=== PATIENT | male | born 1950 | race Caucasian/White ===

== ENCOUNTER 2019-04-02 00:30 | Emergency (ER) | payer BC ==
[2019-04-02 00:35] VITALS: BP 171/96
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
[2019-04-02 02:14] LABS: PLATELET COUNT, AUTOMATED 183 K/uL (150-450)
== END 2019-04-02 03:04 | disposition home or self-care (01) ==
LOC: ER 01:10
DX: H55.00 Unspecified nystagmus (principal)
CPT/HCPCS: 36415; 80305; 80320; 81001; 82040; 82247; 82310; 82374; 82435; 82565; 82947; 84075; 84132; 84155; 84295; 84450; 84460; 84520; 85025; 99283